=== PATIENT | male | born 1980 | race Caucasian/White ===

== ENCOUNTER 2016-12-25 14:36 | Emergency (ER) | payer OTHER ==
[~2016-12-25 14:36] MED LIST: BACTRIM DS TABL1 TAB PO; CLEOCIN PO; IBUPROFEN PO; ORUDIS75 M1 PO; VICODIN 5/500 T1 TAB PO
== END 2016-12-25 16:52 | disposition home or self-care (01) ==
LOC: CED 14:36 → CFTX 14:36
DX: K04.7 Periapical abscess without sinus (principal); F17.210 Nicotine dependence, cigarettes, uncomplicated
CPT/HCPCS: 96372; 99283